=== PATIENT | male | born 1960 | race African-American/Black ===

== ENCOUNTER 2022-10-07 18:21 | Emergency (ER) | payer OTHER ==
[2022-10-07 18:38] VITALS: BP 123/74; PULSE 63; RESP 18; TEMP 98.5; BMI 25.7
[2022-10-07] MEDS ORDERED: ACETAMINOPHEN 1000 MG/100 ML BAG IVPB ONE (19:12)
[2022-10-07] MEDS ORDERED: MAG HYDROX/AL HYDROX/SIMETH 30 ML UNIT-DOSE CUP PO ONE (19:12)
[2022-10-07] MEDS ORDERED: FAMOTIDINE 20 MG/50 ML IVPB 20 MG/50 ML MG IVPB ONE ×2 (19:12→19:49)
[2022-10-07] MEDS ORDERED: MAG HYDROX/AL HYDROX/SIMETH 30 ML UNIT-DOSE CUP ONE (19:49)
[2022-10-07] MEDS ORDERED: ACETAMINOPHEN INJECTION 100 ML IVPB ONE (19:49)
[2022-10-07 20:23] LABS: BASO % 0.9 % (0-2.0); EOS % 2.7 % (0-4.5); HEMATOCRIT 41.1 % (35.4-49); HEMOGLOBIN 13.9 GM/dL (11.7-16.9); LYMPH % 34.3 % (8-40); MCH 28.9 pg (25.7-33.7); MCHC 33.8 g/dl (32.0-35.9); MEAN CELL VOLUME 85.6 fl (80-96); MEAN PLT VOLUME 9.4 fl (7.5-11.1); MONO % 9.2 % (3.8-10.2); NEUT % 52.9 % (42.8-82.8); PLATELET COUNT 153 10^3/uL (134-434); RDW 14.7 % (11.9-15.9)
[2022-10-07 20:38] LABS: POTASSIUM 3.8 mmol/L (3.5-5.1)
[2022-10-07 20:40] LABS: ALBUMIN 3.6 g/dl (3.4-5.0); CALCIUM 8.9 mg/dL (8.5-10.1)
[2022-10-07 20:41] LABS: MAGNESIUM 2.1 mg/dL (1.8-2.4)
[2022-10-07 20:43] LABS: CREATININE 1.2 mg/dL (0.55-1.3)
[2022-10-07 20:45] LABS: BILIRUBIN,TOTAL 0.2 mg/dL (0.2-1); TOT PROT 6.6 g/dl (6.4-8.2)
== END 2022-10-08 00:09 | disposition home or self-care (01) ==
LOC: JER 18:21
PROC: 3E033GC Introduction of Other Therapeutic Substance into Peripheral Vein, Percutaneous Approach (ICD-10-PCS; principal; 2022-10-07)
PROC: 3E033NZ Introduction of Analgesics, Hypnotics, Sedatives into Peripheral Vein, Percutaneous Approach (ICD-10-PCS; 2022-10-07)
DX: R07.89 Other chest pain (principal); R06.02 Shortness of breath
CPT/HCPCS: 36415; 71046-TC-FY; 80053; 83735; 84484; 85025; 85379; 93005; 93010; 93971-TC; 99285-25

== ENCOUNTER 2023-08-14 08:00 | Emergency (ER) | payer OTHER ==
[2023-08-14 08:23] VITALS: BP 168/77; PULSE 66; RESP 18; TEMP 98; BMI 24.4
[2023-08-14] MEDS ORDERED: SILVER NITRATE 75% APPLIC STCK 1 PKT EACH ONE (09:50)
[2023-08-14] MEDS: SILVER NITRATE 75% APPLIC STCK 1 PKT EACH TP ONE (09:57)
== END 2023-08-14 10:25 | disposition home or self-care (01) ==
LOC: JER 08:00
PROC: 2Y41X5Z Packing of Nasal Region using Packing Material (ICD-10-PCS; principal; 2023-08-14)
DX: R04.0 Epistaxis (principal)
CPT/HCPCS: 99283-25

== ENCOUNTER 2024-08-23 06:18 | Day surgery (SDC) | payer OTHER ==
[2024-08-15 11:51] VITALS: BMI 27.3
[2024-08-23 07:42] VITALS: TEMP 97.9
[2024-08-23 09:40] VITALS: BP 137/74; PULSE 60; RESP 20
== END 2024-08-23 09:41 | disposition home or self-care (01) ==
LOC: JASU-ENDO 06:18
PROVIDERS: ATTEND Internal Medicine Gastroenterology
PROC: 0DJD8ZZ Inspection of Lower Intestinal Tract, Via Natural or Artificial Opening Endoscopic (ICD-10-PCS; principal; 2024-08-23 08:45)
DX: Z12.11 Encounter for screening for malignant neoplasm of colon (principal); K64.8 Other hemorrhoids; I10 Essential (primary) hypertension; E11.9 Type 2 diabetes mellitus without complications; Z79.84 Long term (current) use of oral hypoglycemic drugs
CPT/HCPCS: 82962